=== PATIENT | male | born 1980 | race Caucasian/White ===

== ENCOUNTER 2019-06-02 16:07 | Emergency (ER) | payer SELFPAY ==
[~2019-06-02] VITALS: Ht 182.8 cm; Wt 68.4 kg
[2019-06-02] MEDS ORDERED: LIDOCAINE 1% INJ 20 ML 20 ML VIAL INJ ONE (16:45)
[2019-06-02] MEDS ORDERED: CEPH500T PO (16:53)
--- NOTE | 2019-06-02 16:53 | ED Upper Extremity ---
General Chief Complaint: Laceration Stated Complaint: LT FINGER LAC Nursing Triage Note: AMB TO TRIAGE REPORTS WAS TRYING TO SHARPEN A STEAK KNIFE WHEN HE SLIPPED AND CUT L INDEX . Nursing Sepsis Screen: No Definite Risk Source: patient Exam Limitations: no limitations History of Present Illness Date Seen by Provider: Jun 02, 2019 Time Seen by Provider: 16:50 Initial Comments To ER with a laceration to the dorsal radial aspect of the PIP joint left pointer finger just prior to arrival from sharpening a steak knife. Tetanus is up-to-date. Onset: just prior to arrival Severity: moderate Pain/Injury Location: left 2nd finger Modifying Factors: Worse With Movement Allergies and Home Medications Allergies Coded Allergies: No Known Drug Allergies (Unverified , 06/02/19) Home Medications Cephalexin 500 Mg Tablet, 500 MG PO TID Prescribed by: SONIA ROSE on 06/02/19 9018 Patient Home Medication List Home Medication List Reviewed: Yes Review of Systems Constitutional: see HPI EENTM: see HPI Respiratory: no symptoms reported Cardiovascular: no symptoms reported Genitourinary: no symptoms reported Musculoskeletal: no symptoms reported Skin: see HPI Psychiatric/Neurological: No Symptoms Reported Past Rzkeohc-Ijjudy-Kinfjb Hx Patient Social History Alcohol Use: Denies Use Recreational Drug Use: No Smoking Status: Current Everyday Smoker Recent Foreign Travel: No Contact w/Someone Who Travel: No Recent Infectious Disease Expo: No Past Medical History Surgeries: Yes Cardiac: Yes Hypertension Endocrine: No HEENT: No Cancer: No Psychosocial: No Physical Exam Vital Signs Vital Signs - First Documented 06/02/19 16:13 Temp 36.4 Pulse 99 Resp 18 B/P (MAP) 178/120 (139) Pulse Ox 99 O2 Delivery Room Air Capillary Refill : Less Than 3 Seconds Height, Weight, BMI Height: '" Weight: lbs. oz. kg; 20.00 BMI Method: General Appearance: WD/WN, no apparent distress Respiratory: no respiratory distress, no accessory muscle use Shoulder: normal inspection Elbow/Forearm: normal inspection, non-tender Wrist: Yes normal inspection, Yes non-tender Hand: Left, laceration (2 semi-laceration of the dorsoradial aspect of the left pointer finger overlying the PIP joint. Maintains distal sensation and flexion abilities as well as extension abilities. This does not appear to have lacerated through the extensor mechanism.) Neurologic/Tendon: normal sensation, normal motor functions, normal tendon functions Neurologic/Psychiatric: alert, normal mood/affect, oriented x 3 Skin: normal color, warm/dry Procedures/Interventions Wound Location: Upper Extremities Wound Length (cm): 2 Wound's Depth, Shape: linear, sub Q Wound Explored: clean Anesthesia: 1% Lidocaine Suture: Prolene Suture Size: 4-0 Number of Sutures: 6 Layer Closure?: 1 Number Deep Layer Sutures: 0 Progress/Results/Core Measures Results/Orders My Orders Orders - SONIA ROSE APRN Finger(S) (06/02/19 16:23) Lidocaine 1% Inj 20 Ml (Xylocaine 1% Inj (06/02/19 16:45) Medications Given in ED Current Medications Medications Dose Ordered Sig/Allan Route Start Time Stop Time Status Last Admin Dose Admin Lidocaine HCl 2 ml ONCE ONCE INJ 06/02/19 16:45 06/02/19 16:46 DC 06/02/19 16:57 2 ML Vital Signs/I&O 06/02/19 16:13 Temp 36.4 Pulse 99 Resp 18 B/P (MAP) 178/120 (139) Pulse Ox 99 O2 Delivery Room Air Blood Pressure Mean: 139 Departure Impression Primary Impression: Finger laceration Qualified Codes: S61.211A - Laceration without foreign body of left index finger without damage to nail, initial encounter Disposition: 01 HOME, SELF-CARE Condition: Stable Departure-Patient Inst. Decision time for Depature: 16:52 Referrals: NO,LOCAL PHYSICIAN (PCP/Family) Primary Care Physician Patient Instructions: Laceration Repair With Stitches (DC) Add. Discharge Instructions: 1. Return to ER in about 10 days to have the stitches removed 2. Antibiotics as directed 3. Finger splint for the next 2-3 days. Tomorrow you may take this dressing off and replace with a simple Band-Aid. You can let water run over this gently starting tomorrow, however do not soak this in water such as a hot tub bath tub some ankle until the stitches are removed. All discharge instructions reviewed with patient and/or family. Voiced understanding. Scripts Cephalexin (Cephalexin) 500 Mg Tablet 500 MG PO TID, #9 TAB 0 Refills Prov: SONIA ROSE APRN 06/02/19 SONIA ROSE APRN Jun 02, 2019 16:53
--- NOTE | 2019-06-02 17:04 | Diagnostic Imaging Report ---
EXAMINATION: Left second digit. INDICATION: Patient cut 2nd digit of left hand while sharpening a knife. FINDINGS: Three views were obtained. There are no prior studies available for comparison. Reportedly, the patient has suffered a soft tissue injury to the second digit. There does appear to be a 1.5 cm defect in the soft tissues lateral to the head of the proximal phalanx of the second digit. There is no radiopaque foreign body evident in this area nor is there any sign of an acute bony injury. No other fracture or acute bony abnormality is identified. IMPRESSION: There is a soft tissue injury to the lateral aspect of the second digit. There is no fracture identified nor is there any evidence for a radiopaque foreign body. Dictated by: Dictated on workstation # [id number]
[2019-06-02 17:16] VITALS: BP 167/97
== END 2019-06-02 17:15 | disposition home or self-care (01) ==
LOC: EDUNIT# 16:07 → ER 16:09
DX: S61.211A Laceration without foreign body of left index finger without damage to nail, initial encounter (principal); I10 Essential (primary) hypertension; F17.200 Nicotine dependence, unspecified, uncomplicated; W26.0XXA Contact with knife, initial encounter
CPT/HCPCS: 12011; 73140

== ENCOUNTER 2019-06-26 18:30 | Emergency (ER) | payer SELFPAY ==
[~2019-06-26] VITALS: Ht 182 cm; Wt 68.1 kg
[~2019-06-26 18:30] MED LIST: CEPH500T PO
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
[2019-06-26] MEDS ORDERED: HYDROcodone/APAP 7.5 MG/325 MG (LORTAB, LORCET PLUS) TABLET PO ONE (19:30)
--- NOTE | 2019-06-26 19:36 | Diagnostic Imaging Report ---
EXAMINATION: Right knee at 7:10 pm INDICATION: Injury, knee pain Three views were obtained. There does appear to be irregularity of the tibial spines. The possibility that one or both of the spines is slightly fractured should certainly be considered. In addition, there is a vague linear lucency extending through the articular surface of the medial aspect of the proximal tibia. This finding is questionable for a nondisplaced fracture as well. I would recommend that CT be performed for further study. There is no fracture or acute bony abnormality appreciated otherwise. The knee joint is fairly well maintained. There is a small joint effusion present but there is no clear evidence for lipohemarthrosis. IMPRESSION: 1. The irregular appearance of the tibial spines does raise the question of a fracture involving one or both of the tibial spines. There is also vague linear lucency extending through the articular surface of the medial aspect of the proximal tibia. This could be related to a nondisplaced fracture. Recommendations as above. 2. There is no acute bony abnormality noted otherwise. Dictated by: Dictated on workstation # [id number]
[2019-06-26] MEDS ORDERED: HYDR-3063 PO (19:48)
[2019-06-26] MEDS ORDERED: RX-HYDROCODONE/APAP 5/325 MG #4 TAB PK PO ONE (19:54)
[2019-06-26] MEDS ORDERED: RX-HYDROCODONE/APAP 5/325 MG #4 TAB PK PO PRN (20:00)
[2019-06-26 20:02] VITALS: BP 128/99
== END 2019-06-26 20:01 | disposition home or self-care (01) ==
LOC: EDUNIT# 18:30 → ER 18:32
DX: S82.141A Displaced bicondylar fracture of right tibia, initial encounter for closed fracture (principal); I10 Essential (primary) hypertension; F17.200 Nicotine dependence, unspecified, uncomplicated; V27.4XXA Motorcycle driver injured in collision with fixed or stationary object in traffic accident, initial encounter
CPT/HCPCS: 73562